=== PATIENT | female | born 1930 | race Caucasian/White ===

== ENCOUNTER 2016-08-08 09:29 | Inpatient (IN) | payer MEDICARE ==
[~2016-08-08] VITALS: Ht 156.2 cm; Wt 59.1 kg
[2016-08-08] MEDS ORDERED: METO100T PO (10:25)
[2016-08-08] MEDS ORDERED: PRAV40TA2 PO (10:25)
[2016-08-08] MEDS ORDERED: VESI10TA PO (10:25)
[2016-08-08] MEDS ORDERED: VITA2000 PO (10:25)
[2016-08-08] MEDS ORDERED: LISI20TA3 PO (10:25)
[2016-08-08] MEDS ORDERED: LEVO88TA2 PO (10:25)
[2016-08-24] MEDS ORDERED: DEXAMETHASONE SOD PHOS 20 MG/5 ML VIAL IV SCH (06:00)
[2016-08-24] MEDS ORDERED: METOPROLOL TARTRATE 25 MG TAB PO PRN (06:00)
[2016-08-24] MEDS ORDERED: VANCOMYCIN 1000 MG/NS 250 ML (for <70 kg) IV SCH ×2 (06:00)
[2016-08-24] MEDS ORDERED: INSULIN HUMAN REGULAR 1,000 UNITS/10 ML VIAL SQ PRN (06:00)
[2016-08-24] MEDS: POVIDONE IODINE 7.5% SCRUB 118 ML BOTTLE TOP SCH (06:00)
[2016-08-24] MEDS ORDERED: ceFAZolin 2 GM PREMIX 50 ML IV SCH (06:00)
[2016-08-24] MEDS ORDERED: DOXY1CAP74 PO (06:08)
[2016-08-24 06:10] VITALS: BP 190/76; PULSE 69; RESP 20; TEMP 97.8; O2SAT 97
[2016-08-24] MEDS ORDERED: GENTAMICIN SULFATE 80 MG/2 ML VIAL ONE ×2 (06:15→06:16)
[2016-08-24] MEDS ORDERED: ACETAMINOPHEN 1000 MG/100 ML VIAL IV ONE (06:47)
[2016-08-24] MEDS ORDERED: FAMOTIDINE 20 MG/2 ML VIAL ONE (06:47)
[2016-08-24] MEDS ORDERED: HYDROmorphone HCL PF 2 MG/ML VIAL ONE (06:47)
[2016-08-24] MEDS ORDERED: MIDAZOLAM HCL 2 MG/2 ML VIAL ONE (06:47)
[2016-08-24] MEDS ORDERED: fentaNYL CITRATE 250 MCG/5 ML AMP ONE (06:47)
[2016-08-24] MEDS ORDERED: DEXAMETHASONE SOD PHOS 4 MG/ML VIAL ONE (06:48)
--- NOTE | 2016-08-24 06:52 | HHI.DCPOC ---
Discharge Care Plan Diagnosis: (1) Primary localized osteoarthrosis of pelvis or thigh Your Health Problems Are: Difficulty with ADL Goals to Promote Your Health * To prevent worsening of your condition and complications * To maintain your health at the optimal level Directions to Meet Your Goals Take your medications as prescribed Follow your dietary instruction Follow activity as directed Keep your appointments as scheduled Take your immunizations and boosters as scheduled If your symptoms worsen call your PCP, if no PCP go to Urgent Care Center or Emergency Room Smoking is Dangerous to Your Health. Avoid second hand smoke Call the 24-hour hour crisis hotline for domestic abuse at Michael Brown Aug 24, 2016 06:52
--- NOTE | 2016-08-24 06:52 | HHI.FF ---
Face to Face Verification Diagnosis: (1) Primary localized osteoarthrosis of pelvis or thigh Physical Therapy Gait training, Transfer training, bed to chair Hip: Total hip Left LE Weight Bearing: WB as tolerated Left LE Range of Motion: Active ROM Nursing Nursing: Teresita teaching, Dressing changes Dressing Changes: Daily dressing change I have seen patient Ami Godwin on 08/24/16. My clinical findings support the need for the requested home health care services because: Limited ability to care for self High risk of falls I certify that my clinical findings support that this patient is homebound because: Post-op weakness Unsteady gait/balance Michael Brown Aug 24, 2016 06:52
[2016-08-24] MEDS ORDERED: COMMODE 3-IN-11 MIS (06:54)
[2016-08-24] MEDS ORDERED: WALKER WHEELS/F1 MIS (06:54)
[2016-08-24] MEDS: EXPAREL PERI-ARTICULAR INJECTION (TOTAL VOL. 60 ML) P-ARTICULR SCH ×4 (07:00→07:42)
[2016-08-24] MEDS: SODIUM CHLORIDE 0.9% IV SCH ×2 (07:00→07:22)
[2016-08-24] MEDS ORDERED: SODIUM CHLORID 0.9% 500 ML IV SCH (07:00)
[2016-08-24] MEDS ORDERED: LACTATED RINGER'S 1000 ML IV SCH (07:00)
[2016-08-24] MEDS: TRANEXAMIC ACID IV SCH ×2 (07:00→07:22)
[2016-08-24] MEDS ORDERED: TRANEXAMIC ACID INJ 1,000 MG/10 ML AMP IV ONE (07:42)
[2016-08-24] MEDS ORDERED: BUPIVACAINE LIPOSOME PF 1.3% 20 ML VIAL INFIL ONE (07:42)
[2016-08-24] MEDS ORDERED: ACETAMINOPHEN/HYDROcodone 325 MG/5 MG TAB PO PRN (08:45)
[2016-08-24] MEDS ORDERED: ZOLPIDEM TARTRATE 5 MG TAB PO PRN (08:45)
[2016-08-24] MEDS ORDERED: NALOXONE HCL 0.4 MG/ML AMP IV PRN (08:45)
[2016-08-24] MEDS ORDERED: MAGNESIUM HYDROXIDE SUSP 30 ML CUP PO PRN (08:45)
[2016-08-24] MEDS ORDERED: ONDANSETRON HCL 4 MG/2 ML VIAL IVP PRN (08:45)
[2016-08-24] MEDS ORDERED: SODIUM CHLORIDE 0.9% FLUSH 5 ML FLUSH IVF PRN (08:45)
[2016-08-24] MEDS ORDERED: BISACODYL 10 MG SUPP PR PRN (08:45)
[2016-08-24] MEDS ORDERED: diphenhydrAMINE HCL 50 MG/ML VIAL IV PRN (08:45)
[2016-08-24] MEDS ORDERED: MORPHINE SULFATE 4 MG/ML INJ IV PUSH PRN (08:45)
[2016-08-24] MEDS ORDERED: ALUMINUM/MAGNESIUM/SIMETH 30 ML CUP PO PRN (08:45)
--- NOTE | 2016-08-24 08:45 | PD.OP ---
cc: Wilfredo Martinez MD Operative Report Date of Surgery: Aug 24, 2016 Preoperative Diagnosis: Left hip severe osteoarthritis Postoperative Diagnosis: Same Procedure: Left total hip arthroplasty Anesthesia: Gen. Surgeon: Wilfredo Martinez Dental Therapist(s): SHAUN Palmer The surgical procedure was assisted by my Advanced Registered Nurse Practitioner. My PRESSER [employer] BLOCKER [employer] presence was necessary throughout this case for the manipulation and positioning of the surgical extremity. My PRESSER AND BLOCKER [employer] was assisting me throughout the duration of this procedure. The skill set of an Advance Registered Nurse Practitioner was medically necessary to complete this procedure. During the surgical case, the surgical aides teacher was working at the back table and the Advance Registered Nurse Practitioner was directly assisting me. Operation and Findings: IMPLANT DESCRIPTION: 1. Montague Gription Cup, acetabular size 54. 2. Montague AltrX polyethylene, neutral. 4. Corail femoral stem size 12, no collar, high offset. 5. Femoral head/neck metal, 36, -2. ESTIMATED BLOOD LOSS: 200 cc. JUSTIFICATION FOR PROCEDURE: The patient has end-stage osteoarthritis to the hip. There is an attached conservative measures pathway form in the chart that describes the nonoperative measures that were undertaken prior to consideration of surgical management. The patient understood the risks and benefits of surgical management. See my office notes for further details. PROCEDURE: The patient was brought back to the operative theatre. Adequate anesthesia was obtained. The patient received intravenous vancomycin and Ancef. The patient was carefully placed on the operative table. The lower extremity was prepped and draped in the usual sterile fashion. Fluoroscopic images were obtained. We made a standard anterior incision over the hip. We dissected through the TFL fascia, exposing the anterior capsule. Arthrotomy was performed in a T-shaped fashion. The capsule was tagged with a #2 FiberWire. End-stage arthritis was identified. Osteotomy was performed through the femoral neck exposing the acetabulum. Remnants of the labrum were resected and osteophytes were removed. We sequentially reamed the acetabulum. We trialed the hip and placed the final cup into position. This was a 3 hole cup. However, there was good purchase so no screws were placed. This was done under fluoroscopic guidance to obtain the appropriate inclination and anteversion. A manhole cover was placed into the acetabular component. We then placed the final polyethylene into position and confirmed that it was well seated. Capsular attachments on the calcar and the inner aspect of the greater trochanter were resected. On the proximal aspect of the femur we used a rongeur , box osteotome, canal finder, sequential broaches and lateralizing rasp. We calcar planed the proximal femur. Then thoroughly irrigated the wound. We trialed the hip with the appropriate size stem. We placed the final stem in to position and trialed again. The hip was stable while it was externally rotated 70 degrees when the leg was lowered to the floor. The final head was applied, and final fluoroscopic images were obtained. The wound was thoroughly irrigated again. Interarticular injection of liposomal bupivacaine was given. The capsule was closed with #2 FiberWire and #1 Vicryl. The deep fascia was closed with a #2 Stratafix, followed by 2-0 Vicryl in the skin and christopher. Postop plan is to weight-bear as tolerated. DVT prophylaxis will be performed with Sterling, LLOYD owen, early mobilization, and Lovenox followed by aspirin. Wilfredo Martinez MD Aug 24, 2016 08:45
[2016-08-24] MEDS ORDERED: ENOX40P SQ (08:47)
[2016-08-24] MEDS ORDERED: ASPI325T PO (08:47)
[2016-08-24] MEDS ORDERED: NORC5TAB PO (08:47)
[2016-08-24] MEDS ORDERED: Post-op Orders (for Pharmacy) MISC XX ONE (08:59)
[2016-08-24] MEDS: METOPROLOL TARTRATE 100 MG TAB PO SCH ×2 (09:00→21:23)
[2016-08-24] MEDS: SODIUM CHLORIDE 0.9% FLUSH 5 ML FLUSH IVF SCH ×2 (09:00→21:00)
[2016-08-24] MEDS ORDERED: NON-FORMULARY DRUG (Lisinopril-Hctz 1 TAB) PO SCH (09:00)
[2016-08-24] MEDS: SODIUM CHLOR 0.9% 1000 ML INJ 1,000 ML IV SCH ×2 (09:05→18:41)
[2016-08-24] MEDS ORDERED: *morphine SULFATE 8 MG/ML PERIprocedure ONLY ONE (09:10)
[2016-08-24] MEDS ORDERED: DO NOT ADM ANY ANTICOAGULANT DRUGS XX PRN (09:30)
[2016-08-24] MEDS ORDERED: *LABETALOL HCL 100 MG/20 ML VIAL PERIprocedural Use ONLY ONE (09:36)
[2016-08-24] MEDS ORDERED: *ENALAPRILAT 1.25 MG/ML VIAL PERIprocedural Use ONLY ONE (09:36)
--- NOTE | 2016-08-24 09:52 | RADRPT ---
EXAM DATE/TIME: 08/24/2016 09:08 [facility] COMPARISON: No previous studies available for comparison. INDICATIONS : Post op left hip surgery MEDICAL HISTORY : None. SURGICAL HISTORY : right hip replacement 08/2015 ENCOUNTER: Initial ACUITY: 1 day PAIN SCORE: Non-responsive. LOCATION: Left hip FINDINGS: There are postoperative changes of bilateral hip replacement, recently on the left side with skin sta ples and air in the soft tissues. Normal alignment. No complications identified. Previous kyphoplasty lumbar spine. CONCLUSION: 1. Postoperative left hip replacement. No complications. Austin Wells MD on August 24, 2016 at 9:49 Board Certified Radiologist. This report was verified electronically.
[2016-08-24] MEDS ORDERED: TRANEXAMIC ACID INJ 590 MG in SODIUM CHLORIDE 0.9% INJ 100 ML IV SCH (10:00)
[2016-08-24] MEDS ORDERED: NEOSTIGMINE 3 MG/3 ML SYR IV ONE (10:10)
[2016-08-24] MEDS ORDERED: LACTATED RINGER'S 1000 ML INJ 1,000 ML IV ONE (10:10)
[2016-08-24] MEDS ORDERED: PHENYLEPH/NS 1000 MCG/10 ML SYR IV ONE (10:10)
[2016-08-24] MEDS ORDERED: PROPOFOL 200 MG/20 ML AMP IV ONE (10:10)
[2016-08-24] MEDS ORDERED: ONDANSETRON HCL 4 MG/2 ML VIAL IV PUSH ONE (10:10)
[2016-08-24] MEDS ORDERED: ePHEDrine/NS 50 MG/5 ML SYR IV ONE (10:10)
[2016-08-24] MEDS: TOLTERODINE TARTRATE 4 MG CAP LA PO SCH (11:42)
[2016-08-24] MEDS: PRAVASTATIN SOD 40 MG TAB PO SCH (11:42)
[2016-08-24 12:00] VITALS: BP 168/84; PULSE 71; RESP 17; TEMP 95.9; O2SAT 98
[2016-08-24] MEDS ORDERED: DEXTROSE 50% IN WATER 50 ML VIAL(D50) IV PUSH PRN (14:45)
--- NOTE | 2016-08-24 14:48 | RADRPT ---
EXAM DATE/TIME: 08/24/2016 07:25 [facility] COMPARISON: No previous studies available for comparison. INDICATIONS : Left hip total anterior arthroplasty. OR. MEDICAL HISTORY : None. SURGICAL HISTORY : Hip arthroplasty, right. ENCOUNTER: Initial ACUITY: 1 day PAIN SCORE: Non-responsive. LOCATION: Left hip FINDINGS: A two view examination of the left hip was performed. Patient is postoperative left total hip replace ment. Normal alignment. No complications identified. CONCLUSION: 1. Postoperative left total hip replacement. Austin Wells MD on August 24, 2016 at 14:45 Board Certified Radiologist. This report was verified electronically.
[2016-08-24] MEDS: HYDROCHLOROTHIAZIDE 25 MG TAB PO SCH (15:08)
[2016-08-24] MEDS: LISINOPRIL 20 MG TAB PO SCH (15:09)
[2016-08-24] MEDS ORDERED: RESP: ALBUTEROL 2.5 MG/IPRATROPIUM 0.5 MG NEB (PRN) NEB (15:45)
[2016-08-24 16:00] VITALS: BP 139/77; PULSE 75; RESP 17; TEMP 95.5; O2SAT 100
--- NOTE | 2016-08-24 16:19 | MB ---
cc: VIKASH RUIZ BRIAN DATE OF CONSULTATION: 08/24/2016 ATTENDING PHYSICIAN: Dr. Martinez REASON FOR CONSULTATION: Medical management status post left total hip arthroscopy. HISTORY OF PRESENT ILLNESS: Patient seen per Dr. Martinez for recurrent severe osteoarthritis and left hip pain. Treatment regime managed in office setting. She continued with pain and debility and failed OP treatment. Brought into hospital for Lt total hip arthoplasty. Treatment options reviewed per Dr. Martinez. Patient decided to move forward with surgical option. Patient has multiple medical comorbidities which include hypertension, degenerative joint disease, COPD, hypothyroidism, hyperlipidemia, pre-diabetes with elevated blood sugars. PAST MEDICAL HISTORY: 1. Severe hip osteoarthritis bilaterally. 2. Previous rotator cuff tear with biceps tendon, non-repair. 3. Left shoulder osteoarthritis. 4. Left knee osteoarthritis. 5. Sciatica left lower extremity. 6. Right breast cancer. PAST SURGICAL HISTORY: 1. Heart surgery. 2. Hysterectomy. 3. Right total hip replacement, August 2015. ALLERGIES SULFA. MEDICATIONS: Please see medication reconciliation sheet. FAMILY HISTORY: Coronary artery disease. CVA. SOCIAL HISTORY: Long-term tobacco use, quit 10 to 15 years ago. Rare occasional ETOH use. The patient has two sons who assist in her care. REVIEW OF SYSTEMS: A 12 point review of systems was obtained with positive and negatives, discussed in the history. PHYSICAL EXAMINATION: GENERAL: Thin, frail 86 year-old white female, looks to be her stated age, sitting up in a chair. Cognitive function normal. Oriented to person, place, time and situation. SKIN: Thin turgor, pale, warm, dry, no rashes. HEENT: No headaches, masses. Atraumatic, normocephalic. Mucous membranes pink. NECK: Supple. RESPIRATORY: Lungs essentially clear, anteriorly and posteriorly with low air volumes. No rhonchi or wheezes noted. CARDIOVASCULAR: S1-S2, positive for systolic murmur. Grade 3/6 at the lower left sternal border. Pulses intact, 2+/4+ bilateral. No edema. GASTROINTESTINAL: Abdomen soft, flat, nontender. Active bowel sounds all four quadrants. GENITOURINARY: Deferred. MUSCULOSKELETAL: Moves all four extremities purposefully on command. NEUROLOGIC: Alert, oriented, cooperative. Answers questions appropriately. LABORATORY DATA: See outpatient lab data. Please note fasting blood sugar 217 with previous lab draw. ASSESSMENT: 1. Medical management for pre-diabetes. We will monitor her on a regular diet with no added salt. We will check Accu-Cheks and add any appropriate sliding scale based on blood sugar at 7, 11, 4 and 9[address] Protocols in [address] for hypo and hyperglycemia needs. 2. COPD. The patient has meds in place. We will start DuoNeb, if warranted p.r.n. use for any acute wheezing or rhonchi. 3. Hypertension. Will continue her medications and monitor blood pressure during her hospital stay. 4. PTE prophylaxis. Pain management as warranted. Monitor for any acute debility needs. Monitor reconciled medications as per Dr. Martinez. Coags and antibiotics to be managed per Dr. Martinez. Dictated by: SHAUN Bailey SHAUN Bailey/[employer] /3:11 PM /3:33 PM JAKE
--- NOTE | 2016-08-24 19:17 | PD.CONS ---
[facility] Consult Requested By Primary Care Physician Martin Huynh MD Diagnoses: Past Family Social History Allergies: Coded Allergies: Sulfa (Unverified Allergy, Severe, RASH, CONFUSION, 08/24/16) Physical Exam Vital Signs Vital Signs Date Time Temp Pulse Resp B/P Pulse Ox O2 Delivery O2 Flow Rate FiO2 08/24/16 16:00 95.5 75 17 139/77 100 08/24/16 12:00 95.9 71 17 168/84 98 08/24/16 11:18 69 16 152/75 97 Nasal Cannula 2 08/24/16 10:15 68 16 144/72 96 Nasal Cannula 2 08/24/16 10:00 68 16 135/68 97 Nasal Cannula 2 08/24/16 09:45 70 16 178/86 97 Nasal Cannula 2 08/24/16 09:30 66 16 189/79 96 Nasal Cannula 2 08/24/16 09:15 64 16 155/74 96 Nasal Cannula 2 08/24/16 09:00 97.3 68 16 138/72 99 Nasal Cannula 2 08/24/16 06:10 97.8 69 20 190/76 97 Laboratory Laboratory Tests Test 08/24/16 06:05 Blood Type A POSITIVE Antibody Screen NEGATIVE A/P Assessment and Plan pt seen and examined in detail as mentioned by toña vargas labs and rad data reviewed meds reviewed plan of care gissel chauhan pt and sons at bedside gissel rn will follow Crystal Sarabia MD Aug 24, 2016 19:16
[2016-08-24 20:03] VITALS: BP 168/77; PULSE 82; RESP 16; TEMP 95.7; O2SAT 100
[2016-08-24 20:34] VITALS: O2SAT 100
[2016-08-25] VITALS (8 sets, daily range): BP systolic 94–153; BP diastolic 45–74; PULSE 70–81; RESP 15–18; TEMP 96.2–98.5; O2SAT 94–99
[2016-08-25] MEDS: POVIDONE IODINE 7.5% SCRUB 118 ML BOTTLE TOP SCH (06:00)
[2016-08-25] MEDS: LEVOTHYROXINE SODIUM 88 MCG TAB PO SCH (06:14)
[2016-08-25 07:35] LABS: HEMATOCRIT 32.1 % (35.0-46.0); MEAN CORPUSCULAR HEMOGLOBIN 28.3 PG (27.0-34.0); MEAN CORPUSCULAR HGB CONC 33.3 % (32.0-36.0); PLATELET COUNT 58 TH/MM3 (150-450); RED BLOOD COUNT 3.77 MIL/MM3 (4.00-5.30); RED CELL DISTRIBUTION WIDTH 14.1 % (11.6-17.2); WHITE BLOOD COUNT 28.3 TH/MM3 (4.0-11.0)
[2016-08-25 07:41] LABS: REVIEW FLAG FINAL
[2016-08-25 07:42] LABS: BICARBONATE 28.6 MEQ/L (21.0-32.0); POTASSIUM 3.5 MEQ/L (3.5-5.1)
[2016-08-25] MEDS ORDERED: DEXAMETHASONE SOD PHOS 20 MG/5 ML VIAL IV ONE (07:45)
[2016-08-25] MEDS: TOLTERODINE TARTRATE 4 MG CAP LA PO SCH (08:32)
[2016-08-25] MEDS: PRAVASTATIN SOD 40 MG TAB PO SCH (08:32)
[2016-08-25] MEDS: LISINOPRIL 20 MG TAB PO SCH (08:34)
[2016-08-25] MEDS: HYDROCHLOROTHIAZIDE 25 MG TAB PO SCH (08:34)
[2016-08-25] MEDS: ACETAMINOPHEN/HYDROcodone 325 MG/5 MG TAB PO PRN ×3 (08:34→23:18)
[2016-08-25] MEDS: METOPROLOL TARTRATE 100 MG TAB PO SCH ×2 (08:34→21:00)
[2016-08-25] MEDS: ENOXAPARIN SODIUM 40 MG/0.4 ML SYRINGE SQ SCH (08:34)
[2016-08-25] MEDS ORDERED: DOXYCYCLINE 40 MG PO SCH (09:00)
[2016-08-25] MEDS: SODIUM CHLORIDE 0.9% FLUSH 5 ML FLUSH IVF SCH (09:00)
--- NOTE | 2016-08-25 11:19 | PD.ORT.PN ---
Subjective Subjective Remarks + mild hip pain Objective Vitals Vital Signs Date Time Temp Pulse Resp B/P Pulse Ox O2 Delivery O2 Flow Rate FiO2 08/25/16 08:00 98.4 81 18 127/69 96 08/25/16 04:02 96.9 80 15 131/60 96 08/25/16 00:04 96.2 76 16 153/74 99 08/24/16 20:34 100 Nasal Cannula 2.00 08/24/16 20:03 95.7 82 16 168/77 100 08/24/16 16:00 95.5 75 17 139/77 100 08/24/16 12:00 95.9 71 17 168/84 98 08/24/16 11:18 69 16 152/75 97 Nasal Cannula 2 I/O 08/24/16 08/24/16 08/24/16 08/25/16 08/25/16 08/25/16 07:00 15:00 23:00 07:00 15:00 23:00 Intake Total 1490 ml 1442 ml 992 ml Output Total 375 ml 375 ml 650 ml Balance 1115 ml 1067 ml 342 ml Intake Oral 240 ml 240 ml 480 ml IV Total 50 ml 1202 ml 512 ml Other 1200 ml Output Urine Total 375 ml 375 ml 650 ml # Bowel Movements 0 0 0 Result Diagram: 08/25/16 0640 08/25/16 0640 Imaging L PRICILA looks good Objective Remarks L hip dressed and clean, no drainage, no calf swelling, NT. EHL/TA/G intact Assessment & Plan Assessment and Plan POD #1 s/p L PRICILA Lovenox WBAT D/C SNF when cleared (? [place]) Wilfredo Martinez MD Aug 25, 2016 11:19
--- NOTE | 2016-08-25 13:58 | HHI.PR ---
Subjective Remarks S/P left total hip arthroscopy. No chest pain No shortness of breath Mild pain at surgical site left hip Decreased appetite. Postop No fever (Elena Hadley) Objective Objective Results - Vital Signs Date Time Temp Pulse Resp B/P Pulse Ox O2 Delivery O2 Flow Rate FiO2 08/25/16 12:00 98.5 70 18 94/45 96 08/25/16 08:00 98.4 81 18 127/69 96 08/25/16 04:02 96.9 80 15 131/60 96 08/25/16 00:04 96.2 76 16 153/74 99 08/24/16 20:34 100 Nasal Cannula 2.00 08/24/16 20:03 95.7 82 16 168/77 100 08/24/16 16:00 95.5 75 17 139/77 100 I/O 08/24/16 08/24/16 08/24/16 08/25/16 08/25/16 08/25/16 07:00 15:00 23:00 07:00 15:00 23:00 Intake Total 1490 ml 1442 ml 992 ml Output Total 375 ml 375 ml 650 ml Balance 1115 ml 1067 ml 342 ml Intake Oral 240 ml 240 ml 480 ml IV Total 50 ml 1202 ml 512 ml Other 1200 ml Output Urine Total 375 ml 375 ml 650 ml # Bowel Movements 0 0 0 (Elena Hadley) Result Diagram: 08/25/16 0640 08/25/16 0640 ROS General: Other (10 pt. review negative unless noted in subjective data.) ( Elena Hadley) Physical Exam Physical Exam Gen. this is a thin frail white resting in the bed alert and oriented. No acute distress. Son is at bedside. Attempting to eat lunch. No acute distress skin: warm., dry, HEENT: atramatic, nomocephalic, mucous membranes pink. Neck: supple Lungs: clear to anterior and posterior auscultation CV: S1-S2 , grade 2 systolic murmur noted at the lower left sternal border, no pedal edema, pulses intact Abdomen soft nontender, active bowel sounds in all 4 quadrants Muscle skeletal moves extremities with purpose. Some guarding noted at left hip. Neuro: Awake and alert and oriented 4. Responds appropriately to conversation (Elena Hadley) A/P Diagnosis: (1) Leukocytosis Plan: WBC count noted this INR labs 28.3 patient is on 2 antibiotics and has all so been treated for UTI presurgery Patient denies any fever or chills CBC, BMP ordered for am. Increase in WBC may be related to decadron dose given yesterday. Will monitor. D/W Agatha, D/W Dr. Oconnor (2) Pre-diabetes Plan: Continue to monitor Accu-Cheks before meals and at bedtime Hypo and hyperglycemia protocols in place Discussed with patient the need to stay on regular diet with no added sweets. (3) Hypertension Plan: Monitor blood pressure every 4 hours and when necessary At 12:00 patient was noted to have a systolic pressure of 94 but denied any symptoms of shortness of breath weakness or dizziness Will maintain same blood pressure medications for now . (4) Status post total hip replacement, left Plan: Continue with post op care for ortho care . DVT treatment plan includes Lovenox (Elena Hadley) Assessment and Plan Patient seen and examined as above Labs reviewed Discussed with patient and son at bedside Medications reviewed Discussed with AIRCRAFT ENGINE MECHANIC SUPERVISOR about plan of care (Crystal Sarabia MD) Elena Hadley Aug 25, 2016 13:58 Crystal Sarabia MD Aug 25, 2016 16:52
[2016-08-25] MEDS: DOCUSATE SODIUM 100 MG CAP PO SCH (23:16)
[2016-08-25] MEDS: MULTIVITAMINS/MINERALS THERAPEUTIC TAB PO SCH (23:16)
[2016-08-26] VITALS: BP 136/69; PULSE 77; RESP 16; TEMP 97.8; O2SAT 98
[2016-08-26] MEDS: ACETAMINOPHEN/HYDROcodone 325 MG/5 MG TAB PO PRN ×3 (03:32→14:49)
[2016-08-26 05:05] VITALS: BP 148/76; PULSE 88; RESP 16; TEMP 97; O2SAT 100
[2016-08-26 06:14] LABS: HEMATOCRIT 29.9 % (35.0-46.0); MEAN CELL VOLUME 83.4 FL (80.0-100.0); MEAN CORPUSCULAR HEMOGLOBIN 28.4 PG (27.0-34.0); PLATELET COUNT 60 TH/MM3 (150-450); RED BLOOD COUNT 3.58 MIL/MM3 (4.00-5.30); RED CELL DISTRIBUTION WIDTH 14.4 % (11.6-17.2); WHITE BLOOD COUNT 19.3 TH/MM3 (4.0-11.0)
[2016-08-26 06:21] LABS: REVIEW FLAG FINAL
[2016-08-26 06:37] LABS: POTASSIUM 3.4 MEQ/L (3.5-5.1)
[2016-08-26] MEDS: SODIUM CHLORIDE 0.9% FLUSH 5 ML FLUSH IVF SCH ×2 (06:53→09:11)
[2016-08-26] MEDS: LEVOTHYROXINE SODIUM 88 MCG TAB PO SCH (06:53)
[2016-08-26] MEDS: PRAVASTATIN SOD 40 MG TAB PO SCH (09:07)
[2016-08-26] MEDS: MULTIVITAMINS/MINERALS THERAPEUTIC TAB PO SCH (09:08)
[2016-08-26] MEDS: TOLTERODINE TARTRATE 4 MG CAP LA PO SCH (09:08)
[2016-08-26] MEDS: LISINOPRIL 20 MG TAB PO SCH (09:08)
[2016-08-26] MEDS: DOCUSATE SODIUM 100 MG CAP PO SCH (09:08)
[2016-08-26] MEDS: HYDROCHLOROTHIAZIDE 25 MG TAB PO SCH (09:08)
[2016-08-26] MEDS: METOPROLOL TARTRATE 100 MG TAB PO SCH (09:08)
[2016-08-26] MEDS: SODIUM CHLOR 0.9% 1000 ML INJ 1,000 ML IV SCH (09:10)
[2016-08-26] MEDS: ENOXAPARIN SODIUM 40 MG/0.4 ML SYRINGE SQ SCH (09:11)
[2016-08-26] MEDS ORDERED: DEXTROSE 50% IN WATER 50 ML VIAL(D50) IV PUSH PRN ×2 (10:15→11:30)
[2016-08-26] MEDS ORDERED: GLUCAGON 1 MG/ML VIAL OTHER PRN ×2 (10:15→11:30)
[2016-08-26] MEDS ORDERED: POTASSIUM CL 40 MEQ/30 ML LIQ UDC PO ONE (10:15)
[2016-08-26] MEDS ORDERED: INSULIN ASPART SUPPLEMENTAL SCALE SQ SCH ×2 (11:00→16:00)
--- NOTE | 2016-08-26 11:27 | HHI.PR ---
Subjective Remarks S/P left total hip arthroscopy. No chest pain No shortness of breath Some pain at surgical site left hip Better appetite. No fever Review of systems a 12 point system otherwise unremarkable - Objective Objective Results - Vital Signs Date Time Temp Pulse Resp B/P Pulse Ox O2 Delivery O2 Flow Rate FiO2 08/26/16 05:05 97.0 88 16 148/76 100 08/26/16 00:00 97.8 77 16 136/69 98 08/25/16 21:37 97.9 76 16 100/48 97 08/25/16 20:40 121/54 08/25/16 15:52 97.1 73 18 113/49 94 08/25/16 13:36 96 21 08/25/16 12:00 98.5 70 18 94/45 96 I/O 08/25/16 08/25/16 08/25/16 08/26/16 08/26/16 08/26/16 07:00 15:00 23:00 07:00 15:00 23:00 Intake Total 992 ml 960 ml 50 ml 720 ml Output Total 650 ml 200 ml Balance 342 ml 960 ml -150 ml 720 ml Intake Oral 480 ml 960 ml 50 ml 720 ml IV Total 512 ml Output Urine Total 650 ml 200 ml # Voids 2 2 5 # Bowel Movements 0 0 0 0 Result Diagram: 08/26/1617 08/26/1617 Other Results Laboratory Tests Test 08/26/16 05:17 White Blood Count 19.3 Red Blood Count 3.58 Hemoglobin 10.2 Hematocrit 29.9 Mean Corpuscular Volume 83.4 Mean Corpuscular Hemoglobin 28.4 Mean Corpuscular Hemoglobin 34.0 Concent Red Cell Distribution Width 14.4 Platelet Count 60 Mean Platelet Volume 11.0 Sodium Level 134 Potassium Level 3.4 Chloride Level 92 Carbon Dioxide Level 32.0 Anion Gap 10 Blood Urea Nitrogen 17 Creatinine 0.72 Estimat Glomerular Filtration 76 Rate Random Glucose 210 Calcium Level 8.4 Physical Exam Physical Exam Gen. this is a thin frail white resting in the bed alert and oriented. No acute distress. Son is at bedside. No acute distress skin: warm., dry, HEENT: atramatic, nomocephalic, mucous membranes pink. Neck: supple central trachea Lungs: clear to anterior and posterior auscultation CV: S1-S2 , grade 2 systolic murmur noted at the lower left sternal border, no pedal edema, pulses intact Abdomen soft nontender, active bowel sounds in all 4 quadrants Muscle skeletal moves extremities with purpose. Neuro: Awake and alert and oriented 4. Responds appropriately to conversation A/P Assessment and Plan (1) Leukocytosis Plan: WBC count 19.3 patient had Decadron on August 25. It is improving Patient denies any fever or chills CBC (2) Pre-diabetes Plan: Continue to monitor Accu-Cheks before meals and at bedtime Hypo and hyperglycemia protocols in place Discussed with patient the need to stay on regular diet with no added sweets. (3) Hypertension Plan: Monitor blood pressure . (4) Status post total hip replacement, left Plan: Continue with post op care for ortho care . DVT treatment plan includes Teresita chauhan pt and son at bedside Crystal Sarabia MD Aug 26, 2016 11:27
[2016-08-26 12:00] VITALS: BP 147/72; PULSE 83; RESP 18; TEMP 97.2; O2SAT 98
--- NOTE | 2016-08-28 18:28 | HHI.DS ---
Discharge Summary Admission Date Aug 24, 2016 at 05:31 Discharge Date: Aug 26, 2016 Admitting Diagnosis Primary localized OA of pelvis or thigh Diagnosis: (1) Primary localized osteoarthrosis of pelvis or thigh Diagnosis: Principal Procedures Left PRICILA Brief History This is a 86 year old female patient with severe OA of the left hip CBC/BMP: 08/26/16 0517 08/26/16 0517 Significant Findings Laboratory Tests Test 08/26/16 05:17 White Blood Count 19.3 TH/MM3 (4.0-11.0) Red Blood Count 3.58 MIL/MM3 (4.00-5.30) Hemoglobin 10.2 GM/DL (11.6-15.3) Hematocrit 29.9 % (35.0-46.0) Platelet Count 60 TH/MM3 (150-450) Sodium Level 134 MEQ/L (136-145) Potassium Level 3.4 MEQ/L (3.5-5.1) Chloride Level 92 MEQ/L (98-107) Estimat Glomerular Filtration 76 ML/MIN (>89) Rate Random Glucose 210 MG/DL (74-106) Calcium Level 8.4 MG/DL (8.5-10.1) PE at Discharge L hip dressed and clean, no drainage, no calf swelling, NT. EHL/TA/G intact Hospital Course The patient was admitted to the hospital for severe OA of the left hip to have a left PRICILA. The patient's surgery went well with no complications. The patient had a normal hospital course. The patient is WBAT. The patient was discharged to SNF. The patient will f/u with Dr Martinez in 1-2 weeks. Pt Condition on Discharge: Stable Discharge Disposition: Discharge to SNF Discharge Instructions Diet Instructions: As Tolerated, No Restrictions Activities You Can Perform: Weight Bearing as Jabari Activities to Avoid: Strenuous Activity Follow up Referrals: Orthopedics with Wilfredo Martinez MD New Medications: Aspirin (Aspirin) 325 Mg Tab 325 MG PO DAILY Start Aspirin after Lovenox is completed. Prevent Blood Clot # 30 Ref 0 TAB Commode 3-in-1 (Commode 3-in-1) 1 Mis Mis 1 EA .ROUTE DIRECTED #1 Ref 0 EA Enoxaparin Inj (Lovenox Inj) 40 Mg/0.4 Ml Syr 40 MG SQ DAILY Start Aspirin after Lovenox is completed. Blood Clot Prevention # 8 Ref 0 SYRINGE Hydrocodone-Acetaminophen ([place]) 5-325 mg Tab 1-2 TAB PO Q4H PRN PAIN #60 Ref 0 TAB Walker with Front Wheels (Walker with Front Wheels) 1 Mis Mis 1 EA .ROUTE DIRECTED #1 Ref 0 EA Continued Medications: Cholecalciferol (Vitamin D3) 2,000 Unit Cap 2000 UNITS PO DAILY Nutritional Supplement #1 Ref 0 BOTTLE Doxycycline (Doxycycline) 40 Mg Cap 40 MG PO DAILY Infection Ref 0 CAP Levothyroxine (Levothyroxine) 88 Mcg Tab 88 MCG PO DAILY Thyroid #30 Ref 0 TAB Lisinopril-Hctz (Lisinopril-Hctz) 20-25 Mg Tab 1 TAB PO DAILY Blood Pressure Management #30 Ref 0 TAB Metoprolol Tartrate (Metoprolol Tartrate) 100 Mg Tab 100 MG PO BID #60 Ref 0 TAB Pravastatin (Pravastatin) 40 Mg Tab 40 MG PO DAILY Cholesterol Management #30 Ref 0 TAB Solifenacin (Vesicare) 10 Mg Tab 10 MG PO DAILY Urinary Symptom Managemen #30 Ref 0 TAB Michael Brown Aug 28, 2016 18:28
[2016-09-09] MEDS ORDERED: PRAV40TA PO (09:10)
[2016-09-09] MEDS ORDERED: THERTAB15 PO (09:10)
[2016-09-09] MEDS ORDERED: HYDR-3516 PO (09:10)
[2016-09-09] MEDS ORDERED: METO-338 PO (09:10)
[2016-09-09] MEDS ORDERED: LISI-515 PO (09:10)
[2016-09-09] MEDS ORDERED: HYDR25TA5 PO (09:10)
[2016-09-09] MEDS ORDERED: DETR4CAP PO (09:10)
[2016-09-09] MEDS ORDERED: SYNT88TA PO (09:10)
== END 2016-08-26 15:40 | DRG 470 ==
LOC: HSDI 08-24 05:31 → N06B 08-24 11:33
PROVIDERS: ADMIT Orthopaedic Surgery; ATTEND Orthopaedic Surgery
PROC: 0SRB02A Replacement of Left Hip Joint with Metal on Polyethylene Synthetic Substitute, Uncemented, Open Approach (ICD-10-PCS; principal; 2016-08-24 06:58)
DX: M16.12 Unilateral primary osteoarthritis, left hip (principal); J44.9 Chronic obstructive pulmonary disease, unspecified; Z96.641 Presence of right artificial hip joint; I10 Essential (primary) hypertension; M19.012 Primary osteoarthritis, left shoulder; R73.03 Prediabetes; E78.5 Hyperlipidemia, unspecified; E03.9 Hypothyroidism, unspecified; R73.9 Hyperglycemia, unspecified; M17.12 Unilateral primary osteoarthritis, left knee; Z85.3 Personal history of malignant neoplasm of breast; M54.30 Sciatica, unspecified side; D72.829 Elevated white blood cell count, unspecified; Z87.891 Personal history of nicotine dependence
CPT/HCPCS: 73502; 76000; 80048; 81001; 82948; 85027; 86850; 86900; 86901; 94150; C1776; C9290; J0131; J0690; J1100; J1170; J1580; J1650; J1815; J2250; J2270; J2370; J2405; J2710; J3010; J3370; J7030; J7050; J7120

== ENCOUNTER → 2016-08-23 | Outpatient (CLI) | payer MEDICARE ==
[~2016-08-23] MED LIST: ASPI325T PO; COMMODE 3-IN-11 MIS; DETR4CAP PO; DOXY1CAP74 PO; ENOX40P SQ; HYDR-3516 PO; HYDR25TA5 PO; LEVO88TA2 PO; LISI-515 PO; LISI20TA3 PO; METO-338 PO; METO100T PO; NORC5TAB PO; PRAV40TA PO; PRAV40TA2 PO; SYNT88TA PO; THERTAB15 PO; VESI10TA PO; VITA2000 PO; WALKER WHEELS/F1 MIS; Z.0.COMMODE-3:1; Z.0.WALKERFRONT
[2016-08-23 11:17] LABS: BLOOD, URINE TRACE (NEG); GLUCOSE,URINE NEG (NEG); KETONE, URINE NEG (NEG); NITRITE,URINE NEG (NEG); PH, URINE 6.5 (5.0-8.5); URINE COLOR YELLOW (YELLW/STRAW)
== END ==
LOC: CPRE 10:29
PROVIDERS: ATTEND Orthopaedic Surgery
DX: Z01.812 Encounter for preprocedural laboratory examination (principal); N39.0 Urinary tract infection, site not specified
CPT/HCPCS: 81001